=== PATIENT | male | born 1985 | race Caucasian/White ===

== ENCOUNTER 2020-07-31 07:15 | Day surgery (SDC) | payer BC ==
[2020-07-30 15:10] LABS: Absolute Lymphocytes (CBC) 3.1 K/uL (0.7-4.9); Basophils % 1.2 % (0-1.3); Hematocrit 50.9 % (39.6-49.0); Lymphocytes % 30.3 % (15.3-44.8); MPV 8.6 fL (7.6-11.3); RBC Red Blood Cell Count 5.72 M/uL (4.33-5.43)
[2020-07-30 15:21] LABS: Potassium 4.3 mmol/L (3.5-5.1)
--- NOTE | 2020-07-30 15:29 | RAD REPORT ---
EXAM DESCRIPTION: RAD - Chest Pa And Lat (2 Views) - 07/30/2020 3:06 pm CLINICAL HISTORY: preop, pending right shoulder soft tissue mass removal. COMPARISON: None TECHNIQUE: Frontal and lateral views of the chest were obtained. FINDINGS: The lungs are clear of a focal mass or consolidation. Interstitial pattern does appear mil dly prominent suspected to be baseline. Slightly more prominent density in the left base is believed to be a summation artifact of lung parenchyma and rib. Trachea is midline. Heart size is normal and central vasculature is within normal limits. No pleural effusion or pneumothorax seen. No acute derek ny finding noted. No aortic abnormality. IMPRESSION: No acute cardiopulmonary process.
[2020-07-31] MEDS ORDERED: CEFAZOLIN/SWI 1gm 1 GM/10 ML SYR ONE (07:58)
[2020-07-31] MEDS ORDERED: Ringers Lactate 1,000 ML IV ONE (07:58)
[2020-07-31] MEDS ORDERED: propofoL 200 MG/20 ML VIAL IV ONE (09:14)
[2020-07-31] MEDS ORDERED: FENTANYL CITR 100 MCG/2 ML ONE (09:14)
[2020-07-31] MEDS ORDERED: dexAMETHasone 10 MG/ML VIAL ONE (09:14)
[2020-07-31] MEDS ORDERED: LIDOCAINE 1% MPF 5 ML VIAL ONE (09:14)
[2020-07-31] MEDS ORDERED: MIDAZOLAM HCL 2 MG/2 ML INJ ONE (09:14)
[2020-07-31] MEDS ORDERED: KETOROLAC 30 MG/ML INJ ONE (10:04)
[2020-07-31] MEDS ORDERED: HYDROCODONE/APAP 7.5/325 MG TAB ONE (11:18)
[2020-07-31 12:31] VITALS: BP 135/95; TEMP 97.4; O2SAT 98
--- NOTE | 2020-07-31 13:41 | OP ---
Date of Procedure: 07/31/2020 Surgeon: Rafa Montoya MD Spinner Continuous: TROY Gill. Preoperative Diagnosis: Inflamed cyst, right posterior shoulder. Postoperative Diagnosis: Inflamed cyst, right posterior shoulder. Procedure: Wide excision of right posterior shoulder mass 8 x 4 cm with layered closure. Estimated Blood Loss: Minimal. Specimens: Culture and sensitivity of the cyst contents and cyst contents themselves. Finding: As above. Anesthesia: General. Complications: None. Disposition: The patient tolerated the procedure in stable condition and taken to Recovery in good g eneral condition. Procedure In Detail: The patient was brought to the OR and placed in supine position. General anest hesia begun. The patient was placed in the left lateral position, prepped and draped in the usual st erile fashion. Marcaine 0.5% was infiltrated locally. Then, a 15 blade was used to make an 8 x 4 cm incision around the cyst. Subcutaneous tissue divided and then dissection proceeded all the way sofia n to the deep subcutaneous tissue just at the muscle layer and the entire cyst and contents, which gonzalez d some purulence and excised. Cultures were done and sent to Pathology as specimen. Wound irrigated . Bleeding controlled with cautery. Flaps created and then 0 chromic was used to reapproximate the subcutaneous tissue and 2-0 nylon used to close the skin. Sterile dressing was applied. The patient was awakened and taken to Recovery in good general condition. Please note, a quarter-inch [place] d rain was placed and secured with 3-0 nylon. Discharge Note: The patient will go to Day Surgery and home when stable. Disposition: Home. Condition: Stable. Discharge Instructions: Resume home medications and diet. Activity as tolerated. No heavy lifting. May shower in a.m. Change dressing daily. The patient has Cipro at home, Tylenol No.3 for pain. Follow up in my office in a week. Call for appointment. /MODL Voice ID: [id number] Report ID: [id number]
== END 2020-07-31 11:38 | disposition home or self-care (01) ==
LOC: OR 07:15
PROVIDERS: ATTEND Surgery
PROC: 0JBD0ZZ Excision of Right Upper Arm Subcutaneous Tissue and Fascia, Open Approach (ICD-10-PCS; principal; 2020-07-31 09:00)
DX: L72.0 Epidermal cyst (principal); Z20.822 Contact with and (suspected) exposure to COVID-19
CPT/HCPCS: 93005; 87070; 85025; 80048; 36415; 87205; 88304; 87075; 71046; 11406; U0003; J2704; J2250; J3010; J1100; J0690; J7120; 88305